=== PATIENT | female | born 1950 | race Caucasian/White ===

== ENCOUNTER → 2017-03-29 | Outpatient (CLI) | payer MEDICARE ==
[2016-05-22 11:00] VITALS: BP 134/97
[~2017-03-29] MED LIST: ASPI-630 PO; CHOL100013 PO; DOXY100C2 PO; DOXY100T PO; FLUT12AE2 INH; GUAI600T47 PO; LISI10TA2 PO; METO25TA4 PO; METO25TA9 PO; MULT1TAB52 PO; PRED-220 PO; SIMV20TA3 PO; TICA90TA PO; VENTOLIN HFA18 GM INH
--- NOTE | 2017-03-29 15:13 | RAD ---
DATE: 03/29/2017 EXAM: DIGITAL SCREEN BILAT W/CAD HISTORY: Routine screening COMPARISON: Mammogram from 2011 and 2006. This study was interpreted with the benefit of Computerized Aided Detection (CAD). FINDINGS: Breast Density: SCATTERED The breast parenchyma shows scattered fibroglandular densities. Breast parenchyma level B. There is a 2.2 mm nodular density in the anterior third of the right breast just medial of the nipple approximately 3.2 cm from nipple only is seen on CC view. Left breast showed abnormal features. No suspicious calcifications or areas of architectural distortion. IMPRESSION: 2 mm nodule within anterior right breast only seen on CC view . Ultrasound of the right breast recommended. BI-RADS CATEGORY: 0 INCOMPLETE: NEED ADDITIONAL IMAGING EVAULATION AND/OR PRIOR MAMMOGRAMS FOR COMPARISON RECOMMENDED FOLLOW-UP: ADD ADDITIONAL IMAGING PQRS compliance statement: Mammography is a sensitive method for finding small breast cancers, but it does not detect them all and is not a substitute for careful clinical examination. A negative mammogram does not negate a clinically suspicious finding and should not result in delay in biopsying a clinically suspicious abnormality. "Our facility is accredited by the [employer] Mammography [employer]."
== END | disposition home or self-care (01) ==
LOC: MAMMO 09:40
PROVIDERS: ATTEND Family Medicine
DX: Z12.31 Encounter for screening mammogram for malignant neoplasm of breast (principal)
CPT/HCPCS: G0202; 77067

== ENCOUNTER → 2017-04-05 | Outpatient (CLI) | payer MEDICARE ==
[2016-05-22 11:00] VITALS: BP 134/97
--- NOTE | 2017-04-05 11:07 | RAD ---
Exam performed: Right breast ultrasound. History: New nodule seen on mammogram. Date of service: 04/05/17. Comparison: 03/29/17. Discussion: Targeted sonographic evaluation of the right breast is performed and images are obtained. There is a well-defined echogenic 5.3 x 3.1 mm additional nodule at 2:30 o'clock position, 4 cm from the nipple. No internal vascularity is seen. This likely represents a benign lipoma. Impression: Benign echogenic sonographic nodule at 2:30 o'clock position likely represents a lipoma. It is however not clear if this represents the mammographic nodule has a six-month follow-up right breast mammogram may be obtained to ensure interval stability BI-RADS 3. Probably benign findings "Our facility is accredited by the [employer] Mammography Program."
== END | disposition home or self-care (01) ==
LOC: US 10:28
PROVIDERS: ATTEND Family Medicine
DX: R92.8 Other abnormal and inconclusive findings on diagnostic imaging of breast (principal)
CPT/HCPCS: 76641

== ENCOUNTER → 2017-10-04 | Outpatient (CLI) | payer MEDICARE | END | disposition home or self-care (01) | LOC: MAMMO 10:17 | DX: R92.8 Other abnormal and inconclusive findings on diagnostic imaging of breast (principal) | CPT/HCPCS: 77065; G0279 ==

== ENCOUNTER → 2018-01-17 | Outpatient (CLI) | payer MEDICARE, OTHER | END | disposition home or self-care (01) | LOC: US 08:16 | DX: I70.293 Other atherosclerosis of native arteries of extremities, bilateral legs (principal) | CPT/HCPCS: 93925 ==

== ENCOUNTER → 2018-02-07 | Outpatient (CLI) | payer MEDICARE ==
[2018-02-07 11:03] LABS: ALBUMIN 3.7 g/dL (3.4-5.0); ALK PHOS 74 U/L (46-116); ALT (SGPT) 34 U/L (14-59); ANION GAP 9 (6-14); AST (SGOT) 27 U/L (15-37); BLOOD UREA NITROGEN 6 mg/dL (7-20); BUN/CREATININE RATIO 10 (6-20); CALCIUM 8.6 mg/dL (8.5-10.1); CARBON DIOXIDE 27 mmol/L (21-32); CHLORIDE 95 mmol/L (98-107); CHOLESTEROL 145 mg/dL (0-200); CHOLESTEROL/HDL RATIO 1.8; CREATININE 0.6 mg/dL (0.6-1.0); GFR 99.4; GLUCOSE 81 mg/dL (70-99); HDLC 80 mg/dL (40-60); LDLC 51 mg/dL (0-100); NON-HDL CHOLESTEROL 65 mg/dL (0-129); POTASSIUM 3.7 mmol/L (3.5-5.1); SODIUM 131 mmol/L (136-145); TOTAL BILIRUBIN 0.5 mg/dL (0.2-1.0); TOTAL PROTEIN 7.3 g/dL (6.4-8.2); TRIGLYCERIDES 69 mg/dL (0-150); VLDLC 14 mg/dL (0-40)
== END | disposition home or self-care (01) ==
LOC: ECHO 08:43
DX: I65.23 Occlusion and stenosis of bilateral carotid arteries (principal); I25.10 Atherosclerotic heart disease of native coronary artery without angina pectoris; I08.8 Other rheumatic multiple valve diseases; J44.9 Chronic obstructive pulmonary disease, unspecified; I10 Essential (primary) hypertension; E78.5 Hyperlipidemia, unspecified; R29.898 Other symptoms and signs involving the musculoskeletal system
CPT/HCPCS: 36415; 80053; 80061; 93306; 93880

== ENCOUNTER 2018-12-17 02:08 | Inpatient (IN) | payer MEDICARE ==
[~2018-12-17] VITALS: Ht 157.5 cm; Wt 49.1 kg
[~2018-12-17 02:08] MED LIST changes: +METO-239 PO; -METO25TA9 PO
--- NOTE | 2018-12-17 02:31 | PHYS DOC ---
Past Medical History Past Medical History: Asthma, CAD, COPD, Hypertension Additional Past Medical Histor: SICK SINUS SYNDROME, A FLUTTER Past Surgical History: Hip Replacement, Pacemaker Additional Past Surgical Histo: pacemaker, carpal tunnel, breast biopsies, hysterectomy, CABG Alcohol Use: Heavy Drug Use: None Adult General Chief Complaint Chief Complaint: SHORTNESS OF BREATH HPI HPI Patient is a 68 year old F who presents with shortness of breath. Brought in by ambulance was tachypnea She has been coughing occasional sputum but mostly dry She states that this has been going on for a few days now. She states that she does have a history of CHF and COPD. She denies any chest pain, fever, or chills. Shortness of breath is worse with lying flat Review of Systems Review of Systems Constitutional: Denies fever or chills [] Eyes: Denies change in visual acuity, redness, or eye pain [] Cardiovascular: No additional information not addressed in HPI [] GI: Denies abdominal pain, nausea, vomiting, bloody stools or diarrhea [] : Denies dysuria or hematuria [] Neurologic: Denies headache, focal weakness or sensory changes [] Endocrine: Denies polyuria or polydipsia [] All other systems were reviewed and found to be within normal limits, except as documented in this note. Current Medications Current Medications Current Medications Medications (Trade) Dose Ordered Sig/Parviz Start Time Stop Time Status Last Admin Dose Admin Albuterol/ Ipratropium (Duoneb) 3 ml 1X ONCE 12/17/18 03:00 12/17/18 03:01 DC 12/17/18 02:33 3 ML Info (CONTRAST GIVEN -- Rx MONITORING) 1 each PRN DAILY PRN 12/17/18 03:30 12/19/18 03:29 Methylprednisolone Sodium Succinate (SOLU-Medrol 125MG VIAL) 125 mg 1X ONCE 12/17/18 03:00 12/17/18 03:01 DC 12/17/18 02:50 125 MG Allergies Allergies Allergies Coded Allergies Type Severity Reaction Last Updated Verified codeine Allergy Intermediate 07/08/15 Yes morphine Allergy Intermediate 07/08/15 Yes Physical Exam Physical Exam Constitutional: Well developed, cachectic moderately ill-appearing HENT: Normocephalic, atraumatic, bilateral external ears normal, oropharynx moist, no oral exudates, nose normal. [] Eyes: PERRLA, EOMI, conjunctiva normal, no discharge. [] Neck: Normal range of motion, no tenderness, supple, no stridor. [] Cardiovascular: Tachycardia 3/6 systolic ejection murmur Lungs & Thorax: Distant breath sounds, faint wheezing []patient is using accessory muscles to breathe. Abdomen: Bowel sounds normal, soft, no tenderness, no masses, no pulsatile masses. [] Skin: Warm, dry, no erythema, no rash. [] Back: scoliosis noted Extremities: No tenderness, no cyanosis, no clubbing, ROM intact, no edema. [] Neurologic: Alert and oriented X 3, normal motor function, normal sensory function, no focal deficits noted. [] Psychologic: Affect normal, judgement normal, mood mildly anxious Current Patient Data Vital Signs Vital Signs Date Time Temp Pulse Resp B/P (MAP) Pulse Ox O2 Delivery O2 Flow Rate FiO2 12/17/18 02:36 87 Room Air 12/17/18 02:20 97.7 124 26 208/84 (125) 97.7 Lab Values Laboratory Tests Test 12/17/18 02:30 White Blood Count 10.7 x10^3/uL (4.0-11.0) Red Blood Count 4.82 x10^6/uL (3.50-5.40) Hemoglobin 16.2 g/dL (12.0-15.5) H Hematocrit 47.3 % (36.0-47.0) H Mean Corpuscular Volume 98 fL (79-100) Mean Corpuscular Hemoglobin 34 pg (25-35) Mean Corpuscular Hemoglobin Concent 34 g/dL (31-37) Red Cell Distribution Width 12.3 % (11.5-14.5) Platelet Count 242 x10^3/uL (140-400) Neutrophils (%) (Auto) 68 % (31-73) Lymphocytes (%) (Auto) 15 % (24-48) L Monocytes (%) (Auto) 9 % (0-9) Eosinophils (%) (Auto) 8 % (0-3) H Basophils (%) (Auto) 1 % (0-3) Neutrophils # (Auto) 7.3 x10^3uL (1.8-7.7) Lymphocytes # (Auto) 1.6 x10^3/uL (1.0-4.8) Monocytes # (Auto) 1.0 x10^3/uL (0.0-1.1) Eosinophils # (Auto) 0.9 x10^3/uL (0.0-0.7) H Basophils # (Auto) 0.1 x10^3/uL (0.0-0.2) Prothrombin Time 12.0 SEC (11.7-14.0) Prothrombin Time INR 0.9 (0.8-1.1) Sodium Level 139 mmol/L (136-145) Potassium Level 3.5 mmol/L (3.5-5.1) Chloride Level 99 mmol/L (98-107) Carbon Dioxide Level 30 mmol/L (21-32) Anion Gap 10 (6-14) Blood Urea Nitrogen 10 mg/dL (7-20) Creatinine 0.7 mg/dL (0.6-1.0) Estimated GFR (Cockcroft-Gault) 83.0 BUN/Creatinine Ratio 14 (6-20) Glucose Level 112 mg/dL (70-99) H Calcium Level 9.4 mg/dL (8.5-10.1) Total Bilirubin 0.7 mg/dL (0.2-1.0) Aspartate Amino Transferase (AST) 25 U/L (15-37) Alanine Aminotransferase (ALT) 29 U/L (14-59) Alkaline Phosphatase 68 U/L (46-116) Troponin I Quantitative < 0.017 ng/mL (0.000-0.055) TU-Evl-Q-Type Natriuretic Peptide 644 pg/mL (0-124) H Total Protein 8.4 g/dL (6.4-8.2) H Albumin 4.3 g/dL (3.4-5.0) Albumin/Globulin Ratio 1.0 (1.0-1.7) Laboratory Tests 12/17/18 02:30 Laboratory Tests 12/17/18 02:30 EKG EKG []Sinus tach rate 122 LVH pattern no STEMI T-wave inversions laterally and inferiorly. Radiology/Procedures Radiology/Procedures [] Course & Med Decision Making Course & Med Decision Making Pertinent Labs and Imaging studies reviewed. (See chart for details) []Patient was 87% on room air after nebulizer. Patient is not on home oxygen still short of breath requiring accessory muscle use for breathing patient was admitted for COPD exacerbation to the service of Dr. funes. CT scan was negative for PE did show some evidence of bronchitis that is most likely etiology of symptoms BNP was mildly elevated but chest x-ray did not show any obvious pulmonary edema previous most recent ejection fraction in our system was 50-55%. I order doxycycline before transfer to the floor. 68-year-old female history of COPD not on oxygen CAD status post CABG pacemaker sick sinus syndrome on Plavix presenting with shortness of breath likely COPD Dragon Disclaimer Dragon Disclaimer This electronic medical record was generated, in whole or in part, using a voice recognition dictation system. Departure Departure Impression: Primary Impression: COPD exacerbation Disposition: ADMITTED INPATIENT Admitting Physician: Mel Funes Condition: STABLE Referrals: GLORIA GUERRERO MD (PCP) MARIA L LUTZ MD December 17, 2018 02:31
[2018-12-17 02:33] LABS: BASO # 0.1 x10^3/uL (0.0-0.2); BASO % 1 % (0-3); EOS # 0.9 x10^3/uL (0.0-0.7); EOS % 8 % (0-3); HEMATOCRIT 47.3 % (36.0-47.0); HEMOGLOBIN 16.2 g/dL (12.0-15.5); LYMPH # 1.6 x10^3/uL (1.0-4.8); LYMPH % 15 % (24-48); MEAN CORPUSCULAR HEMOGLOBIN 34 pg (25-35); MEAN CORPUSCULAR HGB CONC 34 g/dL (31-37); MEAN CORPUSCULAR VOLUME 98 fL (79-100); MONO % 9 % (0-9); NEUT # 7.3 x10^3uL (1.8-7.7); NEUT % 68 % (31-73); PLATELET COUNT 242 x10^3/uL (140-400); RED BLOOD COUNT 4.82 x10^6/uL (3.50-5.40); RED CELL DISTRIBUTION WIDTH 12.3 % (11.5-14.5); WHITE BLOOD COUNT 10.7 x10^3/uL (4.0-11.0)
[2018-12-17 02:44] LABS: CALCIUM 9.4 mg/dL (8.5-10.1); CREATININE 0.7 mg/dL (0.6-1.0); POTASSIUM 3.5 mmol/L (3.5-5.1)
[2018-12-17 02:49] LABS: ALBUMIN 4.3 g/dL (3.4-5.0); TOTAL BILIRUBIN 0.7 mg/dL (0.2-1.0); TOTAL PROTEIN 8.4 g/dL (6.4-8.2)
[2018-12-17] MEDS ORDERED: methylPREDNISolone SOD SUCC PF 125 MG/2 ML VIAL. IV ONE (03:00)
[2018-12-17] MEDS ORDERED: IPRATRPIUM/ALBUTEROL 0.5/2.5MG 3 ML NEBU. NEB ONE (03:00)
[2018-12-17] MEDS ORDERED: CONTRAST GIVEN. MC PRN (03:30)
[2018-12-17] MEDS ORDERED: DOXYCYCLINE HYCLATE 100 MG in IV DEXTROSE 5% 100ML 100 ML IV ONE (04:00)
[2018-12-17] MEDS ORDERED: IOHEXOL 350 MG/ML 100 ML VIAL. IV ONE (04:00)
[2018-12-17] MEDS ORDERED: LABETALOL 20 MG/4 ML DISP.SYRIN. IVP ONE (04:00)
--- NOTE | 2018-12-17 04:31 | RAD ---
PQRS Compliance Statement: One or more of the following individualized dose reduction techniques were utilized for this examination: 1. Automated exposure control 2. Adjustment of the mA and/or kV according to patient size 3. Use of iterative reconstruction technique CT CHEST WITH CONTRAST, PULMONARY ANGIOGRAM History: Shortness of breath and tachycardia. Comparison: CT chest without contrast, April 22, 2016. Technique: Helical CT of the chest was performed after the administration of 75 cc of Omnipaque 350 intravenous contrast according to protocol. Axial and coronal reconstructions were obtained. 3-D MIP images were constructed to better evaluate the pulmonary arteries. Findings: Pulmonary arteries are adequately opacified. There is no evidence of pulmonary embolism. Atherosclerotic thoracic aorta. Median sternotomy wires and changes of CABG. No thoracic aortic dissection. There is left chest dual-chamber biventricular pacer. There is mitral valve prosthesis. Cardiac size normal, no pericardial effusion. Narrowing of the proximal innominate and left common carotid arteries. Upper limits of normal in size left paratracheal and AP window lymph nodes, image 53. Lymph nodes were present on prior study. There is no pleural effusion. The central airways are patent. Mild bilateral peribronchial thickening suggest bronchitis. There is scarring in the lingula and the basilar left lower lobe. There is minimal biapical paraseptal emphysema. Severe narrowing in the proximal SMA. Atherosclerotic abdominal aorta. No acute bone abnormality. IMPRESSION: 1. There is no CT evidence of pulmonary embolus. 2. Mild bilateral bronchitis. 3. Stable scarring in the lingula and basilar left lower lobe. Electronically signed by: Mak Gregory MD (12/17/2018 4:29 AM) [id number]
[2018-12-17 04:35] VITALS: BP 196/89
[2018-12-17] MEDS ORDERED: CLOP75TA57 PO (04:49)
[2018-12-17 07:00] VITALS: BP 167/97
--- NOTE | 2018-12-17 07:19 | EKG ---
[facility] [address] [place] [address] Test Date: 2018-12-17 Test Time: 02:29:03 Pat Name: LESLYE PIKE Department: Room: [facility] Gender: F [employer]: : 1950 Requested By: MARIA L LUTZ Order Number: [id number] Reading MD: Ben Paez Measurements Intervals [place] Rate: 122 P: -90 NV: 140 QRS: 58 QRSD: 78 T: 113 QT: 314 QTc: 449 Interpretive Statements SINUS TACHYCARDIA INCOMPLETE RIGHT BUNDLE BRANCH BLOCK QRS(T) CONTOUR ABNORMALITY CONSISTENT WITH ANTEROSEPTAL INFARCT AGE UNDETERMINED T ABNORMALITY IN ANTEROLATERAL LEADS INFEROLATERAL LEADS ABNORMAL ECG Electronically Signed On 01-09-2019 12:03:08 CDT by Ben Paez
[2018-12-17] MEDS ORDERED: IPRATRPIUM/ALBUTEROL 0.5/2.5MG 3 ML NEBU. NEB SCH (08:00)
--- NOTE | 2018-12-17 08:13 | RAD ---
PORTABLE CHEST 1V History: Shortness of breath Comparison: April 21, 2016 Findings: Single view of the chest is submitted. There again has been median sternotomy, valvular prosthesis present. There is left electronic cardiac device. Pericardial cardiac silhouette is within normal limits given technique. There is atherosclerotic calcification near aortic arch. There is no pneumothorax. There is unchanged mild blunting of the left costophrenic sulcus, no new significant dependent pleural fluid. There is no new lobar consolidation. Impression: 1. Radiographic findings are unchanged, chronic unchanged mild blunting of the left costophrenic sulcus. Electronically signed by: Simone Middleton MD (12/17/2018 8:10 AM) [id number]
[2018-12-17] MEDS ORDERED: NON FORMULARY ITEM (Albuterol Sulfate (Ventolin Hfa Inhaler) 2 PUFF) INH PRN (08:30)
[2018-12-17] MEDS ORDERED: FLUTICASONE 50MCG/NASAL SPRAY 16GM BOTTLE. NS SCH (09:00)
[2018-12-17] MEDS: FLUTICASONE 50MCG/NASAL SPRAY 16GM BOTTLE. NS SCH ×2 (09:00→21:37)
[2018-12-17] MEDS: MULTIVITAMIN with MINERAL TABLET. PO SCH (09:41)
[2018-12-17] MEDS: predniSONE 20 MG TABLET PO SCH (09:41)
[2018-12-17] MEDS: CLOPIDOGREL BISULFATE 75 MG TABLET PO SCH (09:41)
[2018-12-17] MEDS: ASPIRIN CHEWABLE 81 MG TABLET. PO SCH (09:41)
[2018-12-17] MEDS: DOXYCYCLINE HYCLATE 100 MG TABLET PO SCH ×2 (09:42→16:51)
[2018-12-17] MEDS: METOPROLOL SUCC 24HR ER 25 MG TAB.ER.24H. PO SCH (09:47)
[2018-12-17] MEDS: LISINOPRIL 10 MG TABLET PO SCH (09:48)
[2018-12-17 11:00] VITALS: BP 137/92
--- NOTE | 2018-12-17 11:27 | PDOC1 ---
History and Physical Date of Admission Date of Admission 12/17/2018 Identification/Chief Complaint Chief Complaint I couldn't breathe Source Source: Chart review, Patient History of Present Illness History of Present Illness Patient is a 68-year-old female with long-standing history of smoking of a greater than [id number] history who was in her usual state of health until approximately 3-4 weeks prior to her admission when she started noticing that due to the change in weather her allergies as gotten worse. Over the course of the last 2-3 days prior to her admission her respiratory status has been worsening steadily and on the day of ER visit the patient panicked since she could not "catch her breath". The patient denies fever chills no cough or sputum production was reported no generalized malaise no upper respiratory tract infection cold-like symptoms were reported. No sick contacts she is a 1 pack a day smoker and at the time my evaluation she is in no apparent distress. Her work of breathing is not increased she does have expiratory wheezing pretty out of [place] my evaluation she is being admitted for a COPD exacerbation. denies headache no blurred vision no congestion no abdominal pain no nausea no vomiting no diarrhea reported. Patient has history of peripheral vascular disease that required stent placement in her right lower extremity but she has good capillary refill in no pain over her extremities are reported either. Plan of care has been explained detail all concerns were addressed to the best of my abilities Past Medical History Cardiovascular: AFIB, CAD, HTN, Hyperlipidemia, Valve insufficiency, Other Pulmonary: Asthma, COPD CENTRAL NERVOUS SYSTEM: Other GI: No pertinent hx Heme/Onc: No pertinent hx Hepatobiliary: No pertinent hx Psych: No pertinent hx Rheumatologic: No pertinent hx Infectious disease: No pertinent hx Renal/: No pertinent hx Endocrine: No pertinent hx Past Surgical History Past Surgical History: Pacemaker, Breast Biopsy, CABG, Hysterectomy, Other Family History Family History: Coronary Artery Disease, Heart Disease Social History ALCOHOL: none Drugs: None Current Problem List Problem List Problems Medical Problems: (1) COPD exacerbation Status: Acute Current Medications Current Medications Current Medications Medications (Trade) Dose Ordered Sig/Parviz Start Time Stop Time Status Last Admin Dose Admin Albuterol Sulfate (Ventolin Neb Soln) 2.5 mg PRN Q6HRS PRN 12/17/18 12:00 Albuterol/ Ipratropium (Duoneb) 3 ml Q4HRS W/A 12/17/18 10:00 Aspirin (Children'S Aspirin) 81 mg DAILY 12/17/18 09:00 12/17/18 09:41 81 MG Clopidogrel Bisulfate (Plavix) 75 mg DAILY 12/17/18 09:00 12/17/18 09:41 75 MG Doxycycline Hyclate (Vibra-Tab) 100 mg BIDBFRMEAL 12/17/18 08:30 12/17/18 09:42 100 MG Doxycycline Hyclate 100 mg/ Dextrose 100 ml @ 50 mls/hr 1X ONCE 12/17/18 04:00 12/17/18 05:59 DC 12/17/18 03:57 50 MLS/HR Fluticasone Propionate (Flonase) 1 spray BID 12/17/18 09:00 Info (CONTRAST GIVEN -- Rx MONITORING) 1 each PRN DAILY PRN 12/17/18 03:30 12/19/18 03:29 Iohexol (Omnipaque 350 Mg/ml) 100 ml 1X ONCE 12/17/18 04:00 12/17/18 04:01 DC 12/17/18 03:50 75 ML Labetalol HCl (Normodyne Iv Push) 10 mg 1X ONCE 12/17/18 04:00 12/17/18 04:01 DC Lisinopril (Prinivil) 10 mg DAILY 12/17/18 09:00 12/17/18 09:48 10 MG Methylprednisolone Sodium Succinate (SOLU-Medrol 125MG VIAL) 125 mg 1X ONCE 12/17/18 03:00 12/17/18 03:01 DC 12/17/18 02:50 125 MG Metoprolol Succinate (Toprol Xl) 25 mg DAILY 12/17/18 09:00 12/17/18 09:47 25 MG Multivitamins (Thera M Plus) 1 tab DAILY 12/17/18 09:00 12/17/18 09:41 1 TAB Non-Formulary Medication (Albuterol Sulfate (Ventolin Hfa Inhaler)) 2 puff PRN Q6HRS PRN 12/17/18 08:30 UNV Prednisone (Prednisone) 40 mg DAILY 12/17/18 09:00 12/17/18 09:41 40 MG Simvastatin (Zocor) 10 mg QHS 12/17/18 21:00 Allergies Allergies Allergies Coded Allergies Type Severity Reaction Last Updated Verified codeine Allergy Intermediate 07/08/15 Yes morphine Allergy Intermediate 07/08/15 Yes ROS Review of System CONSTITUTIONAL: No fever or chills EYES: No recent changes SKIN: No rash or itching CARDIOVASCULAR: No chest pain, syncope, palpitations, or edema RESPIRATORY: No SOB or cough GASTROINTESTINAL: No nausea, vomiting or abdominal pain NEUROLOGICAL: No headaches or weakness ENDOCRINE: No cold or heat intolerance GENITOURINARY: No urgency or frequency of urination MUSCULOSKELETAL: No back pain or joint pain LYMPHATICS: No enlarged lymph nodes PSYCHIATRIC: No anxiety or depression Physical Exam Physical Exam Gen.: well-developed well-nourished in no apparent distress Head: Normal shape atraumatic Eyes: Pupils equal reactive to light and accommodation, normal conjunctivae and lids Ears: Normal shape Nose: Normal shape no trauma Mouth: No exudates of the back of throat no thrush no lesions Neck: Supple no JVD no carotid bruit or lymphadenopathy no thyromegaly Chest: Lungs clear to auscultation with good inspiratory effort expiratory wheezes, no rhonchi or rales Cardiovascular: S1-S2 regular rhythm no murmurs gallops or rubs Abdomen: Bowel sounds present soft nontender no hepatosplenomegaly appreciated sign Extremities: No clubbing no cyanosis no edema peripheral pulses palpated bilaterally Neurological: Alert awake oriented in person time place and situation, cranial nerves II through XII intact, no motor or sensory deficits appreciated Psych: Appropriate mood, cooperative Vitals Vitals Vital Signs Date Time Temp Pulse Resp B/P (MAP) Pulse Ox O2 Delivery O2 Flow Rate FiO2 12/17/18 11:00 97.7 123 22 137/92 (107) 92 Nasal Cannula 2.0 97.7 Labs Labs Laboratory Tests Test 12/17/18 02:30 White Blood Count 10.7 x10^3/uL (4.0-11.0) Red Blood Count 4.82 x10^6/uL (3.50-5.40) Hemoglobin 16.2 g/dL (12.0-15.5) Hematocrit 47.3 % (36.0-47.0) Mean Corpuscular Volume 98 fL (79-100) Mean Corpuscular Hemoglobin 34 pg (25-35) Mean Corpuscular Hemoglobin Concent 34 g/dL (31-37) Red Cell Distribution Width 12.3 % (11.5-14.5) Platelet Count 242 x10^3/uL (140-400) Neutrophils (%) (Auto) 68 % (31-73) Lymphocytes (%) (Auto) 15 % (24-48) Monocytes (%) (Auto) 9 % (0-9) Eosinophils (%) (Auto) 8 % (0-3) Basophils (%) (Auto) 1 % (0-3) Neutrophils # (Auto) 7.3 x10^3uL (1.8-7.7) Lymphocytes # (Auto) 1.6 x10^3/uL (1.0-4.8) Monocytes # (Auto) 1.0 x10^3/uL (0.0-1.1) Eosinophils # (Auto) 0.9 x10^3/uL (0.0-0.7) Basophils # (Auto) 0.1 x10^3/uL (0.0-0.2) Prothrombin Time 12.0 SEC (11.7-14.0) Prothromb Time International Ratio 0.9 (0.8-1.1) Sodium Level 139 mmol/L (136-145) Potassium Level 3.5 mmol/L (3.5-5.1) Chloride Level 99 mmol/L (98-107) Carbon Dioxide Level 30 mmol/L (21-32) Anion Gap 10 (6-14) Blood Urea Nitrogen 10 mg/dL (7-20) Creatinine 0.7 mg/dL (0.6-1.0) Estimated GFR (Cockcroft-Gault) 83.0 BUN/Creatinine Ratio 14 (6-20) Glucose Level 112 mg/dL (70-99) Calcium Level 9.4 mg/dL (8.5-10.1) Total Bilirubin 0.7 mg/dL (0.2-1.0) Aspartate Amino Transf (AST/SGOT) 25 U/L (15-37) Alanine Aminotransferase (ALT/SGPT) 29 U/L (14-59) Alkaline Phosphatase 68 U/L (46-116) Troponin I Quantitative < 0.017 ng/mL (0.000-0.055) HR-Qvw-T-Type Natriuretic Peptide 644 pg/mL (0-124) Total Protein 8.4 g/dL (6.4-8.2) Albumin 4.3 g/dL (3.4-5.0) Albumin/Globulin Ratio 1.0 (1.0-1.7) Laboratory Tests Test 12/17/18 02:30 White Blood Count 10.7 x10^3/uL (4.0-11.0) Red Blood Count 4.82 x10^6/uL (3.50-5.40) Hemoglobin 16.2 g/dL (12.0-15.5) Hematocrit 47.3 % (36.0-47.0) Mean Corpuscular Volume 98 fL (79-100) Mean Corpuscular Hemoglobin 34 pg (25-35) Mean Corpuscular Hemoglobin Concent 34 g/dL (31-37) Red Cell Distribution Width 12.3 % (11.5-14.5) Platelet Count 242 x10^3/uL (140-400) Neutrophils (%) (Auto) 68 % (31-73) Lymphocytes (%) (Auto) 15 % (24-48) Monocytes (%) (Auto) 9 % (0-9) Eosinophils (%) (Auto) 8 % (0-3) Basophils (%) (Auto) 1 % (0-3) Neutrophils # (Auto) 7.3 x10^3uL (1.8-7.7) Lymphocytes # (Auto) 1.6 x10^3/uL (1.0-4.8) Monocytes # (Auto) 1.0 x10^3/uL (0.0-1.1) Eosinophils # (Auto) 0.9 x10^3/uL (0.0-0.7) Basophils # (Auto) 0.1 x10^3/uL (0.0-0.2) Prothrombin Time 12.0 SEC (11.7-14.0) Prothromb Time International Ratio 0.9 (0.8-1.1) Sodium Level 139 mmol/L (136-145) Potassium Level 3.5 mmol/L (3.5-5.1) Chloride Level 99 mmol/L (98-107) Carbon Dioxide Level 30 mmol/L (21-32) Anion Gap 10 (6-14) Blood Urea Nitrogen 10 mg/dL (7-20) Creatinine 0.7 mg/dL (0.6-1.0) Estimated GFR (Cockcroft-Gault) 83.0 BUN/Creatinine Ratio 14 (6-20) Glucose Level 112 mg/dL (70-99) Calcium Level 9.4 mg/dL (8.5-10.1) Total Bilirubin 0.7 mg/dL (0.2-1.0) Aspartate Amino Transf (AST/SGOT) 25 U/L (15-37) Alanine Aminotransferase (ALT/SGPT) 29 U/L (14-59) Alkaline Phosphatase 68 U/L (46-116) Troponin I Quantitative < 0.017 ng/mL (0.000-0.055) NJ-Hkh-P-Type Natriuretic Peptide 644 pg/mL (0-124) Total Protein 8.4 g/dL (6.4-8.2) Albumin 4.3 g/dL (3.4-5.0) Albumin/Globulin Ratio 1.0 (1.0-1.7) VTE Prophylaxis Ordered VTE Prophylaxis Devices: Yes VTE Pharmacological Prophylaxi: Yes Assessment/Plan Assessment/Plan Acute COPD exacerbation most likely secondary to reactive airway disease with increase environmental allergens Tobacco abuse counseling has been done less than 10 minutes History of essential hypertension currently uncontrolled History of peripheral vascular disease currently asymptomatic History of CAD currently asymptomatic [place] permanent pacemaker in place Plan: Continue with steroids oral form Continue with doxycycline by mouth Supportive measures and nebulization therapy Resume home medications Encourage ambulation as tolerated Further recommendations based on the clinical course DVT prophylaxis with heparin ELDA SALAZAR MD December 17, 2018 11:27
[2018-12-17] MEDS: IPRATRPIUM/ALBUTEROL 0.5/2.5MG 3 ML NEBU. NEB SCH ×3 (11:31→20:07)
[2018-12-17] MEDS ORDERED: ALBUTEROL SULFATE 2.5 MG/3 ML NEBU. NEB PRN (12:00)
--- NOTE | 2018-12-17 12:48 | NUR ---
SW following Pt for anticipated dc needs. Chart reviewed and ZOE RN. Pt lives at home with spouse. No dc recommendations noted at this time.
[2018-12-17 15:00] VITALS: BP 124/64
[2018-12-17 19:00] VITALS: BP 139/64
[2018-12-17] MEDS ORDERED: SIMVASTATIN 10 MG TABLET PO SCH (21:00)
[2018-12-17] MEDS: LACTOBACILLUS RHAMNOSUS GG 1 CAPSULE. PO SCH (21:36)
[2018-12-17 23:00] VITALS: BP 142/79
[2018-12-18 03:40] VITALS: BP 160/71
[2018-12-18 06:55] VITALS: BP 165/75
[2018-12-18] MEDS: IPRATRPIUM/ALBUTEROL 0.5/2.5MG 3 ML NEBU. NEB SCH ×3 (08:00→12:07)
[2018-12-18] MEDS: ASPIRIN CHEWABLE 81 MG TABLET. PO SCH (09:34)
[2018-12-18] MEDS: LACTOBACILLUS RHAMNOSUS GG 1 CAPSULE. PO SCH (09:34)
[2018-12-18] MEDS: LISINOPRIL 10 MG TABLET PO SCH (09:34)
[2018-12-18] MEDS: CLOPIDOGREL BISULFATE 75 MG TABLET PO SCH (09:35)
[2018-12-18] MEDS: DOXYCYCLINE HYCLATE 100 MG TABLET PO SCH (09:35)
[2018-12-18] MEDS: METOPROLOL SUCC 24HR ER 25 MG TAB.ER.24H. PO SCH (09:36)
[2018-12-18] MEDS: FLUTICASONE 50MCG/NASAL SPRAY 16GM BOTTLE. NS SCH (09:37)
[2018-12-18] MEDS: predniSONE 20 MG TABLET PO SCH (09:37)
[2018-12-18] MEDS: MULTIVITAMIN with MINERAL TABLET. PO SCH (09:40)
[2018-12-18 10:53] VITALS: BP 136/57
[2018-12-18 14:15] VITALS: BP 128/99
[2018-12-18] MEDS ORDERED: ALBU2.5V14 NEB (15:03)
--- NOTE | 2018-12-18 15:18 | PDOC3 ---
Discharge Summary Visit Information Date of Admission: December 17, 2018 Date of Discharge: December 18, 2018 Admitting Diagnosis: COPD exacerbation Final Diagnosis Problems Medical Problems: (1) COPD exacerbation Status: Acute Brief Hospital Course Allergies Allergies Coded Allergies Type Severity Reaction Last Updated Verified codeine Allergy Intermediate 07/08/15 Yes morphine Allergy Intermediate 07/08/15 Yes Vital Signs Vital Signs Date Time Temp Pulse Resp B/P (MAP) Pulse Ox O2 Delivery O2 Flow Rate FiO2 12/18/18 14:15 98.6 109 19 128/99 (109) 92 Room Air 98.6 12/18/18 12:08 2.0 Gen.: well-developed well-nourished in no apparent distress Head: Normal shape atraumatic Eyes: Pupils equal reactive to light and accommodation, normal conjunctivae and lids Ears: Normal shape Nose: Normal shape no trauma Mouth: No exudates of the back of throat no thrush no lesions Neck: Supple no JVD no carotid bruit or lymphadenopathy no thyromegaly Chest: Lungs clear to auscultation some rails of the bilateral lung bases no accessory muscle use no increased work of breathing no expiratory wheezing Cardiovascular: S1-S2 regular rhythm no murmurs gallops or rubs Abdomen: Bowel sounds present soft nontender no hepatosplenomegaly appreciated sign Extremities: No clubbing no cyanosis no edema peripheral pulses palpated bilaterally Neurological: Alert awake oriented in person time place and situation, cranial nerves II through XII intact, no motor or sensory deficits appreciated Psych: Appropriate mood, cooperative Lab Results Laboratory Tests Test 12/17/18 02:30 White Blood Count 10.7 x10^3/uL (4.0-11.0) Red Blood Count 4.82 x10^6/uL (3.50-5.40) Hemoglobin 16.2 g/dL (12.0-15.5) Hematocrit 47.3 % (36.0-47.0) Mean Corpuscular Volume 98 fL (79-100) Mean Corpuscular Hemoglobin 34 pg (25-35) Mean Corpuscular Hemoglobin Concent 34 g/dL (31-37) Red Cell Distribution Width 12.3 % (11.5-14.5) Platelet Count 242 x10^3/uL (140-400) Neutrophils (%) (Auto) 68 % (31-73) Lymphocytes (%) (Auto) 15 % (24-48) Monocytes (%) (Auto) 9 % (0-9) Eosinophils (%) (Auto) 8 % (0-3) Basophils (%) (Auto) 1 % (0-3) Neutrophils # (Auto) 7.3 x10^3uL (1.8-7.7) Lymphocytes # (Auto) 1.6 x10^3/uL (1.0-4.8) Monocytes # (Auto) 1.0 x10^3/uL (0.0-1.1) Eosinophils # (Auto) 0.9 x10^3/uL (0.0-0.7) Basophils # (Auto) 0.1 x10^3/uL (0.0-0.2) Prothrombin Time 12.0 SEC (11.7-14.0) Prothromb Time International Ratio 0.9 (0.8-1.1) Sodium Level 139 mmol/L (136-145) Potassium Level 3.5 mmol/L (3.5-5.1) Chloride Level 99 mmol/L (98-107) Carbon Dioxide Level 30 mmol/L (21-32) Anion Gap 10 (6-14) Blood Urea Nitrogen 10 mg/dL (7-20) Creatinine 0.7 mg/dL (0.6-1.0) Estimated GFR (Cockcroft-Gault) 83.0 BUN/Creatinine Ratio 14 (6-20) Glucose Level 112 mg/dL (70-99) Calcium Level 9.4 mg/dL (8.5-10.1) Total Bilirubin 0.7 mg/dL (0.2-1.0) Aspartate Amino Transf (AST/SGOT) 25 U/L (15-37) Alanine Aminotransferase (ALT/SGPT) 29 U/L (14-59) Alkaline Phosphatase 68 U/L (46-116) Troponin I Quantitative < 0.017 ng/mL (0.000-0.055) MX-Bum-Q-Type Natriuretic Peptide 644 pg/mL (0-124) Total Protein 8.4 g/dL (6.4-8.2) Albumin 4.3 g/dL (3.4-5.0) Albumin/Globulin Ratio 1.0 (1.0-1.7) Brief Hospital Course Patient is a 68-year-old female with long-standing history of smoking of a greater than 12-pxjr-pzoj history who was in her usual state of health until approximately 3-4 weeks prior to her admission when she started noticing that due to the change in weather her allergies as gotten worse. Over the course of the last 2-3 days prior to her admission her respiratory status has been worsening steadily and on the day of ER visit the patient panicked since she could not "catch her breath". The patient denies fever chills no cough or sputum production was reported no generalized malaise no upper respiratory tract infection cold-like symptoms were reported. No sick contacts she is a 1 pack a day smoker and at the time my evaluation she is in no apparent distress. Her work of breathing is not increased she does have expiratory wheezing pretty out of Voltaren my evaluation she is being admitted for a COPD exacerbation. denies headache no blurred vision no congestion no abdominal pain no nausea no vomiting no diarrhea reported. Patient has history of peripheral vascular disease that required stent placement in her right lower extremity but she has good capillary refill in no pain over her extremities are reported either. Plan of care has been explained detail all concerns were addressed to the best of my abilities She recovered after a short period of inpatient supportive measures. She was advised to discontinue her tobacco use which she has a greater than 25-fgbk-lwrh history of smoking. He will be dismissed with antibiotics and steroids for 3 more days, signs and symptoms of alarm discussed she is in good spirits to be dismissed home Discharge Information Condition at Discharge: Improved Follow Up: Weeks (primary care physician) Disposition/Orders: D/C to Home Scheduled Albuterol Sulfate (Albuterol Sulfate Conc Neb Soln) 2.5 Mg/0.5 Ml Vial.neb, 1 VIAL NEB Q6HRS for asthma, #120 Ref 5 Prescribed by: ELDA SALAZAR MD on 12/18/18 1503 Aspirin (Aspirin) 81 Mg Tab.chew, 1 TAB PO DAILY, #30 Ref 3 (Reported) Entered as Reported by: RICKY FALL on 02/24/16 0822 Last Action: Continued on 12/17/18 08 by ELDA SALAZAR MD Clopidogrel Bisulfate (Plavix) 75 Mg Tablet, 75 MG PO DAILY for TO PREVENT BLOOD CLOTS, #30 Ref 0 (Reported) Entered as Reported by: ARIEL SANTOS on 5/15/19 0449 Last Action: Continued on 12/17/18825 by ELDA SALAZAR MD Fluticasone Propionate (Flovent 220MCG Hfa) 12 Gm Aer.w.adap, 2 PUFF INH BID, #12 (Reported) Entered as Reported by: RICKY FALL on 02/24/16821 Last Action: Converted on 12/17/18825 by ELDA SALAZAR MD Lisinopril (Lisinopril) 10 Mg Tablet, 10 MG PO DAILY, #30 (Reported) Entered as Reported by: RICKY FALL on 02/24/16821 Last Action: Continued on 12/17/18825 by ELDA SALAZAR MD Metoprolol Succinate (Metoprolol Succinate ( Xl )) 25 Mg Tab.er.24h, 25 MG PO DAILY, #30 Ref 0 SIG: one p.o. daily Prescribed by: CRISTOBAL NOVOA on 05/22/161126 Last Action: Continued on 12/17/18825 by ELDA SALAZAR MD Multivitamin (Multivitamins) 1 Each Tablet, 1 TAB PO DAILY, #90 Ref 3 (Reported) Entered as Reported by: RICKY FALL on 02/24/16822 Last Action: Converted on 12/17/18825 by ELDA SALAZAR MD Simvastatin (Simvastatin) 20 Mg Tablet, 10 MG PO DAILY, #30 (Reported) Entered as Reported by: RICKY FALL on 02/24/16821 Last Action: Converted on 12/17/18825 by ELDA SALAZAR MD Scheduled PRN Albuterol Sulfate (Ventolin Hfa Inhaler) 18 Gm Hfa.aer.ad, 2 PUFF INH PRN Q6HRS PRN for SHORTNESS OF BREATH, Ref 0 (Reported) Entered as Reported by: RICKY FALL on 02/24/16824 Last Action: Converted on 12/17/18825 by MD MARIE DOZIER HECTOR M MD December 18, 2018 15:18
--- NOTE | 2018-12-18 16:54 | NUR ---
Discharge Note: LESLYE PIKE [address] Discharge instructions and discharge home medications reviewed with Patient and a copy given. All questions have been answered and understanding verbalized. The following instructions and handouts were given: Discharge Instructions, Patient teaching materials Discontinued lines and drains: Peripheral IV removed, Catheter intact. Patient discharged to Home with Self-Care via Private Vehicle.
== END 2018-12-18 17:15 | disposition home or self-care (01) | DRG 191 ==
LOC: ER 02:08 → 6 SOUTH 03:55 → ER 04:20
PROVIDERS: ADMIT Internal Medicine; ATTEND Internal Medicine
DX: J44.1 Chronic obstructive pulmonary disease with (acute) exacerbation (principal); R65.10 Systemic inflammatory response syndrome (SIRS) of non-infectious origin without acute organ dysfunction; E78.5 Hyperlipidemia, unspecified; I11.0 Hypertensive heart disease with heart failure; I25.10 Atherosclerotic heart disease of native coronary artery without angina pectoris; Z96.649 Presence of unspecified artificial hip joint; I48.91 Unspecified atrial fibrillation; I50.9 Heart failure, unspecified; I73.9 Peripheral vascular disease, unspecified; Z72.0 Tobacco use; Z82.49 Family history of ischemic heart disease and other diseases of the circulatory system; Z90.710 Acquired absence of both cervix and uterus; Z95.0 Presence of cardiac pacemaker; Z95.1 Presence of aortocoronary bypass graft; Z88.8 Allergy status to other drugs, medicaments and biological substances; Z71.6 Tobacco abuse counseling
CPT/HCPCS: 36415; 71045; 71275; 80053; 83880; 84484; 85025; 85610; 93005; 94640; 94760; 96365; 96375; J2930; J3490; J7512; J7620; Q9967; 99285-25

== ENCOUNTER → 2019-07-10 | Outpatient (CLI) | payer MEDICARE, OTHER ==
[2019-02-03 10:39] VITALS: BP 155/86
[~2019-07-10] MED LIST changes: +ALBU2.5V14 NEB; +ALBU2.5V8 NEB; +APIX5TAB PO; +CLOP75TA57 PO; +DILT180C29 PO; +FURO40TA4 PO; +POTA20TA4 PO; +REGADENOSON 0.4 MG/5 ML DISP.SYRIN. IV ONE; +SIMV20TA18 PO; -SIMV20TA3 PO
--- NOTE | 2019-07-10 13:25 | RAD ---
MR#: [id number] Date of Study: 07/10/2019 Ordering Physician: JAMES LE, Referring Physician: EDEN GRULLON Tech: RT Kaye Hall) (N) APPROVED REPORT Test Type: Pharmacological Stress Nurse/Tech: Camilla GARCIA Test Indications: CAD, Afib Cardiac History: CAD, Afib, HTN, PPM, See EMR Medications: ASA 81mg QD, See EMR Medical History: Smoker= Quit 6mth ago, See EMR Resting ECG: Afib Resting Heart Rate: 130 bpm Resting Blood Pressure: 154/86mmHg Pretest Chest Pain: No chest pain Nurse/Tech Notes Lung with crackles in the bases bilaterally, Heart tones irregular. Consent: The procedure was explained to the patient in lay terms. Informed consent was witnessed. Matthew eout was entered into [employer]. History and Stress Test performed by RT Molly FinkR) (N) Pharm. Details Pharmacologic stress testing was performed using 0.4mg per 5ml of regadenoson given intravenously ove r 7-10 seconds. Stress Symptoms Dyspnea POST EXERCISE Reason for Termination: Infusion complete Max HR: 133 bpm Max Blood Pressure: 148/75mmHg Blood Pressure response to exercise: Normal blood pressure response during stress. Heart Rate response to exercise: WNL Chest Pain: No. Arrhythmia: No. ST Change: No. INTERPRETATION Stress EKG Conclusion: Non-specific EKG changes. Baseline atrial fibrillation/SVT Imaging Protocol IMAGE PROTOCOL: Rest Tc-99m/stress Tc-99m 1 day Rest: Stress: Viability: Radiopharm.Tc99m KeyvsgqohZq60a Sestamibi Uaca20qIw 31mCi Duration 13min. 13min. Img Date 07/10/2019 07/10/2019 Inj-Img Dyrq59soh. 60min. Rest Admin Site:IV - Left AntecubitalAdministrator:RT Kaye Hall)(N) Stress Admin Site: IV - Left AntecubitalAdministrator: RT Kaye Fink)(N) STRESS DATA End Diast. Vol.51.0mlLVEDV index BSA35.0ml End Syst. Vol.15.0mlLVESV index BSA10.0ml Myocardial Mass96.0gEject. Tsnqiszv04.0% Stress Scores Regional WT2.00Summed WT19.00 Regional WM0.00Summed WM15.00 The rest and stress images show normal perfusion, normal contraction and thickening. LV Perf. Quant 17 Seg. SSS2.00 17 Seg. SRS2.00 17 Seg. SDS0.00 Stress Defect Extent (% LAD)11.30Rest Defect Extent (% LAD)6.90Rev. Defect Extent (% LAD)0.00 Stress Defect Extent (% LCX) 0.00Rest Defect Extent (% LCX)0.00Rev. Defect Extent (% LCX)0.00 Stress Defect Extent (% RCA)0.00Rest Defect Extent (% RCA)0.00Rev. Defect Extent (% RCA)0.00 Stress Defect Extent (% AIDE)4.80Rest Defect Extent (% AIDE)3.30Rev. Defect Extent (% AIDE)0.00 Other Information Quality:Good Risk Assessment: Low Risk Conclusion 1. No evidence of EKG changes with stress testing. 2. Normal perfusion at stress/rest. 3. Low risk study. 4. EF > 60%. Signed by : James Le, Electronically Approved : 07/10/2019 13:25:02
== END | disposition home or self-care (01) ==
LOC: NM 07:51
PROVIDERS: ATTEND Internal Medicine Cardiovascular Disease
DX: I47.1 Supraventricular tachycardia (principal); I25.10 Atherosclerotic heart disease of native coronary artery without angina pectoris; I48.91 Unspecified atrial fibrillation; I10 Essential (primary) hypertension; J44.9 Chronic obstructive pulmonary disease, unspecified; Z95.0 Presence of cardiac pacemaker; Z79.01 Long term (current) use of anticoagulants; Z87.891 Personal history of nicotine dependence
CPT/HCPCS: 78452; 93017; A9500; J2785

== ENCOUNTER 2019-07-24 11:58 | Day surgery (SDC) | payer MEDICARE, OTHER ==
[~2019-07-24 11:58] MED LIST changes: +BENZOCAINE ONE 20% MUCOSAL SPRAY. MM; +IV RINGERS,LACTATED 1000ML 1,000 ML IV SCH; +LIDOCAINE 2% TOPICAL JELLY 30GM TUBE. TP ONE; +LIDOCAINE 2% VISCOUS 15 ML SOLUTION. SWSW ONE; +ONDANSETRON PF 4 MG/2 ML VIAL. IV PRN; +PROCHLORPERAZINE 10 MG/2 ML VIAL. IV PRN; -REGADENOSON 0.4 MG/5 ML DISP.SYRIN. IV ONE; +fentaNYL PF VIAL 100 MCG/2 ML VIAL IV PRN
--- NOTE | 2019-07-24 12:34 | EKG ---
[address] [place] [address] Test Date: 2019-07-24 Test Time: 12:32:16 Pat Name: LESLYE PIKE Department: Room: Gender: F Bilingual Student Tutor: : 1950 Requested By: JAMES NAJERA Order Number: [id number] Reading MD: Measurements Intervals [place] Rate: 124 P: 90 SD: 96 QRS: 22 QRSD: 84 T: -117 QT: 334 QTc: 484 Interpretive Statements SINUS TACHYCARDIA QRS(T) CONTOUR ABNORMALITY CONSISTENT WITH ANTEROSEPTAL INFARCT PROBABLY OLD ST ABNORMALITY, POSSIBLE INFEROLATERAL SUBENDOCARDIAL INJURY ABNORMAL ECG RI6.01 Compared to ECG 02/02/2019 12:10:48 ST (T wave) deviation now present Sinus rhythm no longer present Myocardial infarct finding still present
[2019-07-24 13:01] LABS: HEMATOCRIT 42.2 % (36.0-47.0); HEMOGLOBIN 14.6 g/dL (12.0-15.5); RED BLOOD COUNT 4.32 x10^6/uL (3.50-5.40); RED CELL DISTRIBUTION WIDTH 13.6 % (11.5-14.5); WHITE BLOOD COUNT 8.8 x10^3/uL (4.0-11.0)
[2019-07-24 13:13] LABS: PROTHROMBIN TIME PATIENT 16.3 SEC (11.7-14.0)
[2019-07-24] MEDS ORDERED: PROPOFOL 20 ML IV ONE (13:18)
[2019-07-24 13:24] LABS: CALCIUM 9.3 mg/dL (8.5-10.1); CREATININE 0.6 mg/dL (0.6-1.0); GFR 98.8; POTASSIUM 3.3 mmol/L (3.5-5.1)
--- NOTE | 2019-07-24 14:13 | EKG ---
[facility] [address] [place] [address] Test Date: 2019-07-24 Test Time: 14:09:44 Pat Name: LESLYE PIKE Department: Room: Gender: F Production Mechanic: : 1950 Requested By: JAMES NAJERA Order Number: [id number] Reading MD: Measurements Intervals [place] Rate: 77 P: 0 [place]: 174 QRS: 41 QRSD: 90 T: 107 QT: 410 QTc: 466 Interpretive Statements SINUS RHYTHM LOW LIMB LEAD VOLTAGE QRS(T) CONTOUR ABNORMALITY CONSISTENT WITH ANTERIOR INFARCT PROBABLY OLD ABNORMAL ECG RI6.02 Compared to ECG 02/02/2019 12:10:48 No significant changes
[2019-07-24 14:15] VITALS: BP 130/69
[2019-07-24] MEDS ORDERED: DRON400T PO ×2 (14:25→14:30)
--- NOTE | 2019-07-24 14:45 | CARD ---
MR#: [id number] Date of Study: 07/24/2019 Ordering Physician: JAMES LE, Referring Physician: JAMES LE, Tech: Mary Kate Lopez APPROVED REPORT EXAM: Two-dimensional and M-mode echocardiogram with Doppler and color Doppler. INDICATION COPD Atrial Fibrillation Rule out thrombus / cardioversion Surgery/Intervention Pacemaker: Date: 2011 CABG: Date: 2011 Reason For Test : Rule out Intracardiac Thrombus. PROCEDURE After obtaining informed consent, patient underwent transesophageal echo in the PACU. Type of Sedation : General Anesthesia Sedation was administered by Lisette Collins. Sedation was achieved with Propofol 150mg intravenously. Transesophageal probe was inserted and advanced into esophagus by Jake Le MD. The ERICK was performed without complications. Synchronized Cardioversion attempted: Successful Throughout the procedure, the blood pressure, pulse oximetry, cardiac rhythm, and rate were monitored . The patient tolerated the procedure without adverse effects. Recovery from general anesthesia was une ventful and vital signs were stable. LEFT VENTRICLE The left ventricle is normal size. There is normal left ventricular wall thickness. The left ventricu lar systolic function is normal and the ejection fraction is within normal range. The Ejection Fracti on is 55%. There is mild global hypokinesis of the left ventricle. RIGHT VENTRICLE The right ventricle is normal size. There is normal right ventricular wall thickness. The right ventr icular systolic function is normal. ATRIA The left atrium is borderline dilated. The right atrium is borderline dilated. The interatrial septum is intact with no evidence for an atrial septal defect or patent foramen ovale as noted on 2-D or Do ppler imaging. There is no thrombus noted in the left atrial appendage. AORTIC VALVE The aortic valve is normal in structure and function. Doppler and Color Flow revealed mild aortic reg urgitation. There is no significant aortic valvular stenosis. MITRAL VALVE There is a mitral ring in place. There is no mitral valve stenosis. Doppler and Color-flow revealed m ild mitral regurgitation. The mitral valve ring was visualized and well seated. TRICUSPID VALVE The tricuspid valve is normal in structure and function. Doppler and Color Flow revealed trace tricus pid regurgitation. There is no tricuspid valve stenosis. PULMONIC VALVE The pulmonary valve is normal in structure and function. Doppler and Color Flow revealed no pulmonic valvular regurgitation. There is no pulmonic valvular stenosis. GREAT VESSELS The aortic root is normal in size. The IVC is normal in size and collapses >50% with inspiration. Critical Notification Critical Value: No <Conclusion> The left ventricular systolic function is normal and the ejection fraction is within normal range. Th e Ejection Fraction is 55%. There is mild global hypokinesis of the left ventricle. There is no thrombus noted in the left atrial appendage. Doppler and Color Flow revealed mild aortic regurgitation. Doppler and Color-flow revealed mild mitral regurgitation at the level of the posterior suture line. Successful CVN to SR with a 200J shock. Signed by : James Le, Electronically Approved : 07/24/2019 14:45:35
== END 2019-07-24 14:50 | disposition home or self-care (01) ==
LOC: SURG 11:58
PROVIDERS: ATTEND Internal Medicine Cardiovascular Disease
DX: I48.91 Unspecified atrial fibrillation (principal); I08.1 Rheumatic disorders of both mitral and tricuspid valves; G62.9 Polyneuropathy, unspecified; E78.00 Pure hypercholesterolemia, unspecified; I25.10 Atherosclerotic heart disease of native coronary artery without angina pectoris; I11.0 Hypertensive heart disease with heart failure; I50.9 Heart failure, unspecified; J44.9 Chronic obstructive pulmonary disease, unspecified; Z95.0 Presence of cardiac pacemaker; Z95.1 Presence of aortocoronary bypass graft; Z87.891 Personal history of nicotine dependence; Z90.710 Acquired absence of both cervix and uterus
CPT/HCPCS: 36415; 76376; 80048; 85027; 85610; 93005; 93312; 93320; 93325; J2704; 92960

== ENCOUNTER → 2020-05-26 | Outpatient (CLI) | payer MEDICARE, OTHER ==
[~2020-05-26] MED LIST changes: -BENZOCAINE ONE 20% MUCOSAL SPRAY. MM; +DRON400T PO; -IV RINGERS,LACTATED 1000ML 1,000 ML IV SCH; -LIDOCAINE 2% TOPICAL JELLY 30GM TUBE. TP ONE; -LIDOCAINE 2% VISCOUS 15 ML SOLUTION. SWSW ONE; +MULT-445 PO; -MULT1TAB52 PO; -ONDANSETRON PF 4 MG/2 ML VIAL. IV PRN; -PROCHLORPERAZINE 10 MG/2 ML VIAL. IV PRN; -fentaNYL PF VIAL 100 MCG/2 ML VIAL IV PRN
[2020-05-26 08:08] LABS: BASO # 0.1 x10^3/uL (0.0-0.2); BASO % 1 % (0-3); EOS # 0.2 x10^3/uL (0.0-0.7); EOS % 2 % (0-3); HEMATOCRIT 43.5 % (36.0-47.0); HEMOGLOBIN 14.8 g/dL (12.0-15.5); LYMPH # 1.4 x10^3/uL (1.0-4.8); LYMPH % 13 % (24-48); MEAN CORPUSCULAR HEMOGLOBIN 32 pg (25-35); MEAN CORPUSCULAR HGB CONC 34 g/dL (31-37); MEAN CORPUSCULAR VOLUME 93 fL (79-100); MONO # 0.9 x10^3/uL (0.0-1.1); MONO % 9 % (0-9); NEUT # 7.6 x10^3/uL (1.8-7.7); NEUT % 75 % (31-73); PLATELET COUNT 266 x10^3/uL (140-400); RED BLOOD COUNT 4.66 x10^6/uL (3.50-5.40); RED CELL DISTRIBUTION WIDTH 14.5 % (11.5-14.5); WHITE BLOOD COUNT 10.1 x10^3/uL (4.0-11.0)
[2020-05-26 08:42] LABS: ALBUMIN 3.7 g/dL (3.4-5.0); ALBUMIN/GLOBULIN RATIO 0.8 (1.0-1.7); CREATININE 0.7 mg/dL (0.6-1.0); GFR 82.5; POTASSIUM 3.3 mmol/L (3.5-5.1); TOTAL BILIRUBIN 0.4 mg/dL (0.2-1.0); TOTAL PROTEIN 8.2 g/dL (6.4-8.2)
[2020-05-26 08:47] LABS: CHOLESTEROL/HDL RATIO 2.4
--- NOTE | 2020-05-26 11:05 | CARD ---
MR#: [id number] Date of Study: 05/26/2020 Ordering Physician: JAMES NAJERA, Referring Physician: JAMES NAJERA, Tech: Kaitlynn Larsen [facility] APPROVED REPORT EXAM: Two-dimensional and M-mode echocardiogram with Doppler and color Doppler. Other Information Quality : Fair INDICATION Cardiac Disease: CAD Smoking History-Probable COPD, coughing during echo, Pacemaker 2D DIMENSIONS RVDd2.6 (2.9-3.5cm)Left Atrium(2D)3.4 (1.6-4.0cm) IVSd1.3 (0.7-1.1cm)Aortic Root(2D)3.0 (2.0-3.7cm) LVDd3.9 (3.9-5.9cm)LVOT Diameter1.9 (1.8-2.4cm) PWd1.3 (0.7-1.1cm)LVDs3.0 (2.5-4.0cm) FS (%) 23.3 %SV30.6 ml LVEF(%)47.3 (>50%) Aortic Valve AoV Peak Theodore.119.5cm/sAoV VTI25.8cm AO Peak GR.5.7mmHgLVOT Peak Theodore.95.5cm/s AO Mean GR.3mmHgAVA (VMAX)2.38cm2 JOSE L (VTI)2.95en8DU P 1/2 Gxqp186xe Mitral Valve MV E Fmcytucs407.3cm/sMV E Peak Gr.24mmHg MV DECEL AENF324taLJ A Sftnkfru83.3cm/s MV E Mean Gr.7mmHgE/A Ratio1.8 Tricuspid Valve TR P. Imxbfupv095gr/sRAP ZEENBPIT3xvWj TR Peak Gr.80qzGtIHZW31djWd Pulmonary Vein S1 Qnmbmaky61.1cm/sD2 Gfanrokn11.3cm/s LEFT VENTRICLE The left ventricle is normal size. There is mild concentric left ventricular hypertrophy. Left ventri michael systolic function is low normal. EF 50% Apical motion consistent with pacemaker activation. Trans mitral Doppler flow pattern is Grade II-pseudonormal filling dynamics. RIGHT VENTRICLE The right ventricle is normal size. The right ventricular systolic function is normal. There is a pac emaker lead in the right ventricle. ATRIA The left atrium size is normal. The right atrium size is normal. A pacemaker is seen in the right atr ium consistent with history. The interatrial septum is intact with no evidence for an atrial septal d efect or patent foramen ovale as noted on 2-D or Doppler imaging. AORTIC VALVE The aortic valve is mildly thickened but opens well. Doppler and Color Flow revealed moderate aortic regurgitation. There is no significant aortic valvular stenosis. MITRAL VALVE The mitral valve is mildly thickened but opens well. Mitral annular calcification is moderate. There is no evidence of mitral valve prolapse. There is no mild mitral stenosis. MG 7 mm Hg. Doppler and Co aubery-flow revealed mild mitral regurgitation. TRICUSPID VALVE The tricuspid valve is normal in structure and function. Doppler and Color Flow revealed mild tricusp id regurgitation. There is moderate-severe pulmonary hypertension. The PA pressure was estimated at 6 3 mmHg. There is no tricuspid valve stenosis. PULMONIC VALVE The pulmonic valve is not well visualized. Doppler and Color Flow revealed mild to moderate pulmonic valvular regurgitation. There is no pulmonic valvular stenosis. GREAT VESSELS The aortic root is normal in size. The ascending aorta is not well seen. The IVC is normal in size an d collapses >50% with inspiration. PERICARDIAL EFFUSION There is no evidence of significant pericardial effusion. Critical Notification Critical Value: No <Conclusion> Left ventricle systolic function is low normal. EF 50% Apical motion consistent with pacemaker activation. There is a pacemaker lead in the right ventricle. Doppler and Color Flow revealed moderate aortic regurgitation. Doppler and Color Flow revealed mild tricuspid regurgitation. There is moderate-severe pulmonary hype rtension. The PA pressure was estimated at 63 mmHg. Doppler and Color Flow revealed mild to moderate pulmonic valvular regurgitation. Signed by : James Najera, Electronically Approved : 05/26/2020 11:04:34
--- NOTE | 2020-05-26 12:11 | RAD ---
MR#: [id number] Date of Study: 05/26/2020 Ordering Physician: JAMES NAJERA, Referring Physician: JAMES NAJERA, Tech: Mary Kate Hartley RDMS, HARRYT, RTR APPROVED REPORT Patient Location: OUT-PATIENT Indications Peripheral Vascular Disease; HX of CABG Risk Factors Cardiac Disease Duplex Results A/PTransverseLongitudinal Proximal Aorta 1.9cm2.2cm2cm Mid Aorta 2.2cm1.7cm1.8cm Distal Aorta 1.4cm1.4cm1.4cm Doppler VelocityWaveform Proximal Aorta 61.2 cm/secBiphasic Aorta Mid. 85.9 cm/secBiphasic Distal Aorta 114.5 cm/secBiphasic Findings Moderate diffuse aortic atherosclerosis noted without any significant evidence of aneurysm. The bila teral iliac vessels are not well visualized. Measurements as noted above. Critical Notification Critical Value: No <Conclusion> 1. No evidence of abdominal aortic aneurysm. Signed by : James Najera, Electronically Approved : 05/26/2020 12:10:35
== END ==
LOC: ECHO 07:47
PROVIDERS: ATTEND Internal Medicine Cardiovascular Disease
DX: I08.8 Other rheumatic multiple valve diseases (principal); I73.9 Peripheral vascular disease, unspecified; I25.10 Atherosclerotic heart disease of native coronary artery without angina pectoris; E78.5 Hyperlipidemia, unspecified; I70.0 Atherosclerosis of aorta; Z95.5 Presence of coronary angioplasty implant and graft
CPT/HCPCS: 36415; 76770; 80053; 80061; 85025; 93306

== ENCOUNTER → 2020-12-12 | Outpatient (CLI) | payer MEDICARE, OTHER ==
[~2020-12-12] MED LIST changes: -DRON400T PO; +DRON400T6 PO; +LISI10TA16 PO; -LISI10TA2 PO
--- NOTE | 2020-12-12 15:15 | RAD ---
MR#: [id number] Date of Study: 12/12/2020 Ordering Physician: JAMES NAJERA, Referring Physician: JAMES NAJERA, Tech: Arcadio Hannon MBA, RDMS, RVT, RDCS, RTR APPROVED REPORT Patient Location: OUT-PATIENT Laterality:Bilateral Indications PVD Doppler Spectral Velocity Analysis Right Left pCCA 72/10 cm/spCCA 112/18 cm/s mCCA 93/17 cm/smCCA 85/16 cm/s dCCA 106/19 cm/sdCCA 101/18 cm/s Bulb 71/9 cm/sBulb 107/17 cm/s ECA 164/ cm/sECA 119/ cm/s pICA 120/22 cm/spICA 110/24 cm/s Millie 115/23 cm/smICA 104/20 cm/s dICA 104/23 cm/sdICA 123/19 cm/s Vert. 59/ cm/sVert. 63/ cm/s Subcl. 157/ cm/sSubcl. 168/ cm/s ICA/CCA 1.13ICA/CCA 1.10 Findings Grayscale images of the bilateral carotid vessels demonstrates moderate diffuse atherosclerotic plaqu e. Based on spectral waveforms and velocities there is overall 0 to less than 50% stenosis bilaterally i n the internal carotid arteries. The bilateral vertebral arteries demonstrate antegrade flow with no rmal velocities. Normal ICA to CCA ratios bilaterally. Bilateral subclavian velocities are grossly unremarkable. Critical Notification Critical Value: No <Conclusion> 1. No significant extracranial carotid occlusive disease bilaterally Signed by : James Najera, Electronically Approved : 12/12/2020 15:15:10
--- NOTE | 2020-12-12 15:16 | RAD ---
MR#: [id number] Date of Study: 12/12/2020 Ordering Physician: JAMES NAJERA, Referring Physician: JAMES NAJERA, Tech: Arcadio Hannon MBA, RDMS, RVT, RDCS, RTR APPROVED REPORT Patient Location: OUT-PATIENT Indications PAD Findings Right arm 165, left arm 153 Right ankle 158, left ankle 167 Right LICHA 0.95, left LICHA 1.0 Critical Notification Critical Value: No <Conclusion> 1. Normal bilateral LICHA. Signed by : James Najera, Electronically Approved : 12/12/2020 15:15:47
--- NOTE | 2020-12-12 15:18 | RAD ---
MR#: [id number] Date of Study: 12/12/2020 Ordering Physician: JAMES NAJERA, Referring Physician: JAMES NAJERA, Tech: Arcadio Hannon MBA, RDMS, RVT, RDCS, RTR APPROVED REPORT Patient Location: OUT-PATIENT Indications PAD VELOCITY AND DOPPLER WAVEFORM ANALYSIS RIGHT cm/secWaveformSeverity LEFT cm/secWaveform Severity dCFA 135.0BiphasicdCFA 212.0Biphasic Prof Fem Art. 74.0BiphasicProf Fem Art. 82.0Biphasic Fem Art Prox. 242.0BiphasicFem Art Prox. 107.0Biphasic Fem Art Mid. 109.0BiphasicFem Art Mid. 123.0Biphasic Fem Art Dist. 198.0BiphasicFem Art Dist. 153.0Biphasic Pop Art(Fossa) 90.0BiphasicPop Art(AK) 60.0Biphasic GARDEN LABOURER Prox. 87.0BiphasicPTA Prox. 77.0Biphasic GARDEN LABOURER Dist. 64.0BiphasicPTA Dist. 68.0Monophasic Per Art Mid. 75.0BiphasicPer Art Mid. 32.0Biphasic VANNESA Prox. 80.0BiphasicATA Prox. 71.0Biphasic DPA 54MonophasicDPA 21Monophasic Findings Grayscale images of the bilateral lower extremity arterial vessels demonstrate moderate diffuse ather osclerotic plaque. On the right side there are mostly biphasic waveforms with three-vessel runoff below the knee. Proba ble moderate proximal SFA stenosis of approximately 50%. On the left side, overall less than 50% jeanne nosis based on velocity criteria with three-vessel runoff below the knee. Probable moderate diffuse atherosclerotic plaque involving the below-knee vessels on the left side as noticed with monophasic w aveforms involving the distal posterior tibial artery and dorsalis pedis artery. Critical Notification Critical Value: No <Conclusion> 1. Probable moderate right SFA disease 2. Three-vessel runoff below the knee bilaterally with small vessel disease likely. 3. Normal LICHA Signed by : James Najera, Electronically Approved : 12/12/2020 15:18:04
== END ==
LOC: US 08:30
PROVIDERS: ATTEND Internal Medicine Cardiovascular Disease
DX: I65.23 Occlusion and stenosis of bilateral carotid arteries (principal)
CPT/HCPCS: 93880; 93922; 93925

== ENCOUNTER → 2021-06-26 | Outpatient (CLI) | payer OTHER ==
[~2021-06-26] MED LIST changes: -DOXY100C2 PO; +DOXY100C3 PO; +POTA-121 PO; -POTA20TA4 PO
--- NOTE | 2021-06-26 14:35 | CARD ---
MR#: [id number] Date of Study: 06/26/2021 Ordering Physician: JAMES NAJERA, Referring Physician: JAMES NAJERA, Tech: Donna Daljasonangela, [facility] APPROVED REPORT EXAM: Two-dimensional and M-mode echocardiogram with Doppler and color Doppler. Other Information Quality : AverageHR: 84bpm Rhythm : Pacemaker INDICATION Mitral Valve Disease Surgery/Intervention Pacemaker: Date: 2011 CABG: Date: 2011 Site: [place] RISK FACTORS Hypertension Hyperlipidemia Asthma 2D DIMENSIONS RVDd3.1 (2.9-3.5cm)Left Atrium(2D)3.4 (1.6-4.0cm) IVSd1.2 (0.7-1.1cm)Aortic Root(2D)3.1 (2.0-3.7cm) LVDd4.1 (3.9-5.9cm)LVOT Diameter2.0 (1.8-2.4cm) PWd1.1 (0.7-1.1cm)LVDs2.9 (2.5-4.0cm) FS (%) 29.6 %SV41.2 ml LVEF(%)57.1 (>50%) Aortic Valve AoV Peak Theodore.101.4cm/sAoV VTI19.7cm AO Peak GR.4.1mmHgLVOT Peak Theodore.81.4cm/s LVOT VTI 15.26cmAO Mean GR.2mmHg JOSE L (VMAX)2.73og5FGA (VTI)2.49cm2 AI P 1/2 [id number] Mitral Valve MV E Mttkesri991.2cm/sMV DECEL [id number] MV A Awvsbnyv756.7cm/sMV E Mean Gr.5mmHg MV MAC07cqA/A Ratio1.0 MVA (PHT)4.43cm2 TDI E/Lateral E'22.2E/Medial E'26.1 Pulmonary Valve PV Peak Tutbmuqg32.4cm/sPV Peak Grad.2mmHg Tricuspid Valve TR P. Cwnobalw488qj/sRAP XAPUEDKH3qfGc TR Peak Gr.27quWkIRSH48ibWw LEFT VENTRICLE The left ventricle is normal size. There is mild concentric left ventricular hypertrophy. The left ve ntricular systolic function is normal. The Ejection Fraction is 50-55%. Wall motion consistent with c onduction abnormality. Transmitral Doppler flow pattern is Grade II-pseudonormal filling dynamics. RIGHT VENTRICLE The right ventricle is normal size. There is normal right ventricular wall thickness. The right ventr icular systolic function is normal. There is a pacemaker lead in the right ventricle. ATRIA The left atrium size is normal. The right atrium size is normal. The interatrial septum is intact wit h no evidence for an atrial septal defect or patent foramen ovale as noted on 2-D or Doppler imaging. AORTIC VALVE The aortic valve is mildly thickened. Doppler and Color Flow revealed mild aortic regurgitation. Ther e is no significant aortic valvular stenosis. Calculated aortic valve area is 2.26 cm2 with maximum p ressure gradient of 5 mmHg and mean pressure gradient of 3 mmHg. MITRAL VALVE The mitral valve is moderately thickened. There is no evidence of mitral valve prolapse. There is mil d to moderate mitral valve stenosis with a mean gradient of 5.9 mmHg. Doppler and Color-flow revealed mild mitral regurgitation. TRICUSPID VALVE The tricuspid valve is normal in structure and function. Doppler and Color Flow revealed mild tricusp id regurgitation with an estimated PAP of 23 mmHg. There is no tricuspid valve stenosis. PULMONIC VALVE The pulmonic valve is not well visualized. Doppler and Color Flow revealed trace pulmonic valvular re gurgitation. GREAT VESSELS The aortic root is normal in size. The ascending aorta is normal in size measuring 3.2 cm. The IVC is normal in size and collapses >50% with inspiration. PERICARDIAL EFFUSION There is no evidence of significant pericardial effusion. Critical Notification Critical Value: No <Conclusion> The left ventricular systolic function is normal. The Ejection Fraction is 50-55%. Pacer lead noted RA/RV. Mild aortic regurgitation. Mild to moderate mitral valve stenosis with a mean gradient of 5.9 mmHg. Mild tricuspid regurgitation. There is no evidence of significant pericardial effusion. Signed by : Ben Paez, Electronically Approved : 06/26/2021 14:34:40
== END ==
LOC: ECHO 09:50
PROVIDERS: ATTEND Internal Medicine Cardiovascular Disease
DX: I08.3 Combined rheumatic disorders of mitral, aortic and tricuspid valves (principal); I10 Essential (primary) hypertension; E78.5 Hyperlipidemia, unspecified; J45.909 Unspecified asthma, uncomplicated
CPT/HCPCS: 93306